=== PATIENT | female | born 1990 | race Asian ===

== ENCOUNTER 2016-08-06 09:49 | Emergency (ER) | payer OTHER ==
[~2016-08-06] VITALS: Ht 162.6 cm; Wt 53.5 kg
[2016-08-06] MEDS ORDERED: BACITRACIN1 APPLIC TOPIC (11:00)
[2016-08-06] MEDS ORDERED: Bacitracin Oint UD TOPIC ONE (11:00)
[2016-08-06 11:15] VITALS: BP 120/82
[2016-08-06 11:25] VITALS: BP 120/82
--- NOTE | 2016-08-07 15:29 | Emergency Room Report ---
History of Present Illness General Chief Complaint: Upper Extremity Injury Source: Patient Present Illness HPI 26-year-old female presents ED complaining of left elbow pain. States that she bumped her elbow today on the door. 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 Denies any other injuries. Notes pain, 3/10, dull, nonradiating. No other aggravating or relieving factors. Denies any other associated symptoms Allergies: Coded Allergies: No Known Allergies (Unverified , 08/06/16) Patient History Past Medical History: none Past Surgical History: none Pertinent Family History: none Social History: Denies: alcohol use, drug use, smoking Last Menstrual Period: last week Now: No Immunizations: UTD Reviewed Nursing Documentation: PMH: Agreed, PSxH: Agreed Nursing Documentation-PMH Past Medical History: No Stated History Review of Systems All Other Systems: negative except mentioned in HPI Physical Exam Vital Signs Date Time Temp Pulse Resp B/P Pulse Ox O2 Delivery O2 Flow Rate FiO2 08/06/16 10:19 98.4 72 18 120/82 100 Room Air Sp02 EP Interpretation: reviewed, normal General Appearance: no apparent distress, alert, GCS 15, non-toxic Head: normocephalic Eyes: bilateral eye PERRL, bilateral eye normal inspection ENT: normal ENT inspection Neck: normal inspection Respiratory: normal inspection Cardiovascular #1: normal inspection Gastrointestinal: normal inspection Rectal: deferred Genitourinary: no CVA tenderness Musculoskeletal: other - 1cm abrasion to L elbow. Neurologic: alert, oriented x3, responsive, motor strength/tone normal, sensory intact, speech normal Psychiatric: normal inspection Skin: normal inspection Lymphatic: normal inspection Medical Decision Making Diagnostic Impression: Primary Impression: Elbow abrasion Qualified Codes: S50.312A - Abrasion of left elbow, initial encounter ER Course Hospital Course 26-year-old female presents to ED complaining of left elbow pain with abrasion Differential diagnoses include: Fracture, dislocation, sprain, contusion, bursitis Clinical course Patient placed on stretcher. After initial history, physical exam reveals an young female in no acute distress. There is a 1 cm superficial abrasion to the left elbow. No bruising or crepitus. Full range of motion. Did not suspect fracture. No imaging required. Reassurance given patient Tetanus is up-to-date. Wound is irrigated. Dressing applied Diagnosis - abrasion to elbow Stable and discharged to home with prescription for bacitracin. Followup with PMD. Return to ED if symptoms recur or worsen Last Vital Signs Date Time Temp Pulse Resp B/P Pulse Ox O2 Delivery O2 Flow Rate FiO2 08/06/16 11:25 98.4 18 120/82 100 Room Air 08/06/16 11:15 72 Status: improved Disposition: HOME, SELF-CARE Condition: Stable Scripts Bacitracin (Bacitracin Zinc) 15 Gm Oint...g. 1 APPLIC TOPIC BID for 5 Days, APPLIC Prov: TIMO MACIAS M.D. 08/06/16 Departure Forms: Return to Work Return to Work Date: Aug 06, 2016 Work Restrictions: None Patient Instructions: [employer] [id number] TIMO MACIAS M.D. Aug 07, 2016 15:29
== END 2016-08-06 11:25 | disposition home or self-care (01) ==
LOC: EMR 10:42
DX: S50.312A Abrasion of left elbow, initial encounter (principal); W22.8XXA Striking against or struck by other objects, initial encounter; Y92.239 Unspecified place in hospital as the place of occurrence of the external cause; Y99.0 Civilian activity done for income or pay
CPT/HCPCS: 99283